=== PATIENT | female | born 1995 ===

== ENCOUNTER 2019-01-30 16:13 | Inpatient (IN) | payer MEDICAID, OTHER ==
--- NOTE | 2019-01-30 18:04 | C.PDOC ---
History Of Present Illness RECUR CP X SEV DAYS. +CHRONIC SOB BUT WORSE THAN USUAL SINCE CP. NO FEVER, COUGH. PMHx of extensive cardiac surgery due to ventricular septle defect at . [facility] "WATER IN MY LUNGS" Patient is on home oxygen at 4 liters BUT HAS NOT USED IN 2 WKS. HO DVT in April 2018 and a PE in December 2017. COMPLIANT W MEDS, TOOK TODAY ON ELIQUIS EXAM NONTOXIC LUNGS CTA B/L NO W/R/R CV RRR EXT REMAINDER NEG <Lori York - Last Filed: 01/30/19 18:53> History Per: Patient History/Exam Limitations: no limitations Onset/Duration Of Symptoms: Days Current Symptoms Are (Timing): Still Present Severity: Moderate <Lori York - Last Filed: 01/30/19 18:53> <Kylie Whitfield - Last Filed: 01/30/19 23:02> Time Seen by Provider: 01/30/19 17:50 Chief Complaint (Nursing): Shortness Of Breath Past Medical History Reviewed: Historical Data, Nursing Documentation, Vital Signs Vital Signs: Last Vital Signs Temp 99.2 F 01/30/19 17:42 Pulse 104 H 01/30/19 17:42 Resp 20 01/30/19 17:42 BP 106/62 01/30/19 17:42 Pulse Ox 87 L 01/30/19 17:42 - Medical History PMH: COPD, Pneumonia, Pulmonary Embolism Other Surgeries: Hx of surgeries Family History: States: No Known Family Hx - Social History Hx Tobacco Use: No (quit 2 months ago) Hx Alcohol Use: Yes Hx Substance Use: No - Immunization History Hx Tetanus Toxoid Vaccination: No Hx Influenza Vaccination: No Hx Pneumococcal Vaccination: No <Lori York - Last Filed: 01/30/19 18:53> Vital Signs: Last Vital Signs Temp 99.2 F 01/30/19 17:42 Pulse 88 01/30/19 21:28 Resp 18 01/30/19 21:28 BP 130/60 01/30/19 21:28 Pulse Ox 92 L 01/30/19 21:28 <Kylie Whitfield - Last Filed: 01/30/19 23:02> Review Of Systems Except As Marked, All Systems Reviewed And Found Negative. Constitutional: Negative for: Fever, Chills Cardiovascular: Positive for: Chest Pain Respiratory: Positive for: Shortness of Breath. Negative for: Cough Gastrointestinal: Negative for: Nausea, Vomiting, Abdominal Pain <Lori York Last Filed: 01/30/19 18:53> Physical Exam - Physical Exam Appears: Non-toxic Skin: Normal Color, Warm, Dry Head: Atraumatic, Normacephalic Eye(s): bilateral: Normal Inspection Neck: Supple Chest: Symmetrical Cardiovascular: Rhythm Regular (RRR) Respiratory: Normal Breath Sounds, No Rales, No Rhonchi, No Wheezing Extremity: Normal ROM Neurological/Psych: Oriented x3, Normal Speech <[facility] Last Filed: 01/30/19 18:53> ED Course And Treatment ECG: Interpreted By Ne ECG Rhythm: Sinus Rhythm ECG Interpretation: Normal Rate From EC O2 Sat by Pulse Oximetry: 87 (RA) Pulse Ox Interpretation: Other (Low) - Radiology CXR: Interpreted by Ne CXR Interpretation: Yes: No Acute Disease <[facility] Last Filed: 01/30/19 18:53> - Laboratory Results Result Diagrams: 01/30/19 19:36 01/30/19 19:36 Lab Results: PT 14.1 SECONDS (9.7-12.2) H 01/30/19 20:07 INR 1.3 01/30/19 20:07 APTT 42 SECONDS (21-34) H 01/30/19 20:07 Troponin I < 0.0120 ng/mL (0.00-0.120) 01/30/19 19:36 NT-Pro-B Natriuret Pep 111 pg/mL (0-450) 01/30/19 19:36 Total Bilirubin 0.9 mg/dL (0.2-1.3) 01/30/19 19:36 AST 96 U/L (14-36) H D 01/30/19 19:36 ALT 42 U/L (9-52) 01/30/19 19:36 Alkaline Phosphatase 117 U/L (38-126) 01/30/19 19:36 Total Protein 9.3 g/dL (6.3-8.3) H 01/30/19 19:36 Albumin 4.8 g/dL (3.5-5.0) 01/30/19 19:36 Globulin 4.5 gm/dL (2.2-3.9) H 01/30/19 19:36 Albumin/Globulin Ratio 1.1 (1.0-2.1) 01/30/19 19:36 Progress Note: spoke with dr amaya -icu - will come and see the pt in the ed. pt is hemodynamically stable. no cp , palpiations and sat 92-94 on 2 l nc <JohanamadieVeenaarslan - Last Filed: 01/30/19 23:02> Progress - Data Reviewed Data Reviewed: Lab, Diagnostic imaging, EKG, Old records <JaylenLori - Last Filed: 01/30/19 18:53> Critical Care Time - Critical Care Note Total Time (in mins): 30 Documented critical care: time excludes all time spent performing seperately billable procedures. <Kylie Whitfield - Last Filed: 01/30/19 23:02> Medical Decision Making Medical Decision Making: Plan: --Labs --CXR --CT-Chest <JaylenLori Last Filed: 01/30/19 18:53> Disposition - Disposition Disposition Time: 19:00 <JaylenLori Last Filed: 01/30/19 18:53> Discussed With : Ramón Henrandez Comment: accepted the pt on his service and took over the care at 11PM Doctor Will See Patient In The: Hospital Counseled Patient/Family Regarding: Studies Performed, Diagnosis - POA Present On Arrival: None <RoseannKylie - Last Filed: 01/30/19 23:02> - Disposition Disposition: HOSPITALIZED Condition: GUARDED Forms: [employer] ([place]) - Clinical Impression Clinical Impression: Chest pain, Hypoxia, Saddle embolus, Pulmonary emboli - Scribe Statement The provider has reviewed the documentation as recorded by the Scribe Daniel Somers Provider Attestation: All medical record entries made by the Scribe were at my direction and personally dictated by me. I have reviewed the chart and agree that the record accurately reflects my personal performance of the history, physical exam, medical decision making, and the department course for this patient. I have also personally directed, reviewed, and agree with the discharge instructions and disposition. <JaylenLori - Last Filed: 01/30/19 18:53> Physician Patient Turnover Patient Signed Over To: Kylie Whitfield Handoff Comments: FU LABS, CT, DISPO <Lori York - Last Filed: 01/30/19 18:53> Decision To Admit <Lori York - Last Filed: 01/30/19 18:53> - Pt Status Changed To: Hospital Disposition Of: Inpatient - Admit Certification Admit to Inpatient:: After my assessment, the patient will require hospitalization for at least two midnights. This is because of the severity of symptoms shown, intensity of services needed, and/or the medical risk in this patient being treated as an outpatient. - InPatient: Physician Admission Certification: I certify that this patient requires 2 or more midnights of care for the following reason:: After my assessment, the patient will require hospitalization for at least two midnights. This is because of the severity of symptoms shown, intensity of services needed, and/or the medical risk in this patient being treated as an outpatient. - . Bed Request Type: ICU Admitting Physician: Ramón Hernandez <Kylie Whitfield - Last Filed: 01/30/19 23:02> - . Patient Diagnosis: Chest pain, Hypoxia, Saddle embolus, Pulmonary emboli
--- NOTE | 2019-01-30 18:28 | RAD ---
Date of service: 01/30/2019 PROCEDURE: CHEST RADIOGRAPH, 1 VIEW HISTORY: chest pain COMPARISON: 10/25/2015. FINDINGS: LUNGS: Clear. PLEURA: No pneumothorax or pleural fluid seen. CARDIOVASCULAR: No aortic atherosclerotic calcification present. No radiographic findings to suggest acute or significant cardiovascular disease. OSSEOUS STRUCTURES: No significant abnormalities. VISUALIZED UPPER ABDOMEN: Normal. OTHER FINDINGS: None. IMPRESSION: No active disease.No significant interval change compared to the prior examination(s). Concordant results with the preliminary interpretation rendered by the emergency department physician procedure.
[2019-01-30 19:44] LABS: BASO % 0.5 % (0.0-2.0); EOS # 0.1 K/uL (0.0-0.7); EOS % 1.5 % (0.0-4.0); HEMOGLOBIN 14.8 g/dL (11.0-16.0); LYMPH # 1.7 K/uL (1.0-4.3); LYMPH % 20.6 % (20.0-40.0); MEAN CORPUSCULAR HGB CONC 31.7 g/dL (33.0-37.0); MEAN PLATELET VOLUME 8.2 fL (7.2-11.7); MONO # 0.8 K/uL (0.0-0.8); MONO % 9.7 % (0.0-10.0); NEUT # 5.5 K/uL (1.8-7.0); NEUT % 67.7 % (50.0-75.0); RBC 6.44 Mil/uL (3.80-5.20); RED CELL DISTRIBUTION WIDTH 19.9 % (11.5-14.5); WHITE BLOOD COUNT 8.2 K/uL (4.8-10.8)
[2019-01-30 19:48] LABS: MEAN CELL VOLUME 72.7 fL (81.0-99.0)
[2019-01-30 20:03] LABS: BLOOD UREA NITROGEN 16 mg/dL (7-17); CALCIUM 9.4 mg/dl (8.6-10.4); GFR NON-AFRICAN AMERICAN > 60
[2019-01-30 20:13] LABS: B-TYPE NATRIURETIC PEPTIDE 111 pg/mL (0-450)
[2019-01-30 20:14] LABS: ALB/GLOB RATIO 1.1 (1.0-2.1); ALBUMIN 4.8 g/dL (3.5-5.0); ALT/SGPT 42 U/L (9-52); AST/SGOT 96 U/L (14-36)
[2019-01-30 20:22] LABS: INR 1.3; PROTHROMBIN TIME 14.1 SECONDS (9.7-12.2)
[2019-01-30] MEDS ORDERED: Iodixanol 320 MG/ML 100 ML BOTTLE IV ONE (20:58)
--- NOTE | 2019-01-31 00:14 | CP.CCUPN ---
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 Patient primary human resources hr generalist at [place], and the patient called left message for him to call us back Patient has been on home oxygen since last year 3 L via nasal cannula and her baseline saturation usually 90%. She presented to the emergency room with on and off shortness of breath pleuritic type mid sternal chest pain and dizziness that has been going on for the past 1-2 weeks, symptom usually worse with walking and activities and relieved by rest, Of note she will call and make an appointment with her primary doctor for Wednesday but she could not wait and presented to the emergency room last night In the emergency room she underwent stat CT angiogram of the chest revealed central and segmental pulmonary embolism bilaterally with sudden saddle embolus present compatible with extensive PE, Upon my exam the patient is alert awake oriented x3, she was hemodynamically stable and saturation in high 90s on 3 L nasal cannula, denies chest pain, shortness of breath, cough, sputum production, fever/chills, hemoptysis, dizziness, loss of consciousness or palpitation. Oxygen increased to 4 L nasal cannula and her saturation picked up to 90-92% Patient is started on heparin drip after she received 5000 units bolus Patient admitted to the intensive care unit for close hemodynamic and respiratory monitoring and the plan is to discuss with interventional radiology for possible catheter directed thrombolytics Echocardiogram and bilateral lower extremity venous Doppler ordered CCU Objective - Vital Signs / Intake & Output Vital Signs (Last 4 hours): Vital Signs Temp Pulse Resp BP Pulse Ox 01/30/19 23:29 98.8 F 96 H 16 117/75 90 L 01/30/19 21:28 88 18 130/60 92 L 01/30/19 21:05 126/73 Intake and Output (Last 8hrs): Intake & Output 01/30/19 01/30/19 01/31/19 14:59 22:59 06:59 Weight 168 lb - Physical Exam Physical Exam Limitations: Negative for: Altered Mental Status, Clinical Condition Head: Positive for: Atraumatic, Normocephalic Pupils: Positive for: PERRL Extroacular Muscles: Positive for: EOMI Conjunctiva: Positive for: Normal. Negative for: Injected, Icteric Ears: Positive for: Normal Mouth: Positive for: Moist Mucous Membranes Pharnyx: Positive for: Normal. Negative for: ERYTHEMA, EXUDATE Nose (Internal): Positive for: Normal Inspection Neck: Positive for: Normal Range of Motion, Trachea Midline. Negative for: Meningeal Signs, MIDLINE TENDERNESS, Paraspinal Tenderness, JVD, Lymphadenopathy, Bruit, Other Respiratory/Chest: Positive for: Clear to Auscultation, Good Air Exchange. Negative for: Respiratory Distress, Accessory Muscle Use, Wheezes, Decreased Breath Sounds, Rales, Rhonchi, Tachypneic Cardiovascular: Positive for: Regular Rate and Rhythm, Normal S1, S2, Peripheal Pulses Present. Negative for: Murmurs, Irregular Rhythm, Tachycardic, Bradycardic, Rub Abdomen: Positive for: Normal Bowel Sounds. Negative for: Tenderness, Distention, Peritoneal Signs Neurological: Positive for: GCS=15, CN II-XII Intact, Motor Func Grossly Intact. Negative for: Speech Normal (MUFFLED (BASELINE)) Psychiatric: Positive for: Alert, Oriented x 3 - Patient Studies Lab Studies: Lab Studies 01/30/19 01/30/19 01/30/19 Range/Units 20:07 19:36 19:36 WBC 8.2 D (4.8-10.8) K/uL RBC 6.44 H (3.80-5.20) Mil/uL Hgb 14.8 D (11.0-16.0) g/dL Hct 46.8 (34.0-47.0) % MCV 72.7 L D (81.0-99.0) fL MCH 23.0 L (27.0-31.0) pg MCHC 31.7 L (33.0-37.0) g/dL RDW 19.9 H (11.5-14.5) % Plt Count 217 D (130-400) K/uL MPV 8.2 (7.2-11.7) fL Neut % (Auto) 67.7 (50.0-75.0) % Lymph % (Auto) 20.6 (20.0-40.0) % Hendry % (Auto) 9.7 (0.0-10.0) % Eos % (Auto) 1.5 (0.0-4.0) % Baso % (Auto) 0.5 (0.0-2.0) % Neut # (Auto) 5.5 (1.8-7.0) K/uL Lymph # (Auto) 1.7 (1.0-4.3) K/uL Hendry # (Auto) 0.8 (0.0-0.8) K/uL Eos # (Auto) 0.1 (0.0-0.7) K/uL Baso # (Auto) 0.0 (0.0-0.2) K/uL PT 14.1 H (9.7-12.2) SECONDS INR 1.3 APTT 42 H (21-34) SECONDS Sodium 136 (132-148) mmol/L Potassium 4.0 (3.6-5.2) mmol/L Chloride 96 L (98-107) mmol/L Carbon Dioxide 26 (22-30) mmol/L Anion Gap 17 (10-20) BUN 16 (7-17) mg/dL Creatinine 0.5 L (0.7-1.2) mg/dL Est GFR ( Amer) > 60 Est GFR (Non-Af Amer) > 60 Random Glucose 93 (65-105) mg/dL Calcium 9.4 (8.6-10.4) mg/dl Total Bilirubin 0.9 (0.2-1.3) mg/dL AST 96 H D (14-36) U/L ALT 42 (9-52) U/L Alkaline Phosphatase 117 (38-126) U/L Troponin I < 0.0120 (0.00-0.120) ng/mL NT-Pro-B Natriuret Pep 111 (0-450) pg/mL Total Protein 9.3 H (6.3-8.3) g/dL Albumin 4.8 (3.5-5.0) g/dL Globulin 4.5 H (2.2-3.9) gm/dL Albumin/Globulin Ratio 1.1 (1.0-2.1) Laboratory Results - last 24 hr 01/30/19 01/30/19 01/30/19 19:36 19:36 20:07 WBC 8.2 D RBC 6.44 H Hgb 14.8 D Hct 46.8 MCV 72.7 L D MCH 23.0 L MCHC 31.7 L RDW 19.9 H Plt Count 217 D MPV 8.2 Neut % (Auto) 67.7 Lymph % (Auto) 20.6 Hendry % (Auto) 9.7 Eos % (Auto) 1.5 Baso % (Auto) 0.5 Neut # (Auto) 5.5 Lymph # (Auto) 1.7 Hendry # (Auto) 0.8 Eos # (Auto) 0.1 Baso # (Auto) 0.0 PT 14.1 H INR 1.3 APTT 42 H Sodium 136 Potassium 4.0 Chloride 96 L Carbon Dioxide 26 Anion Gap 17 BUN 16 Creatinine 0.5 L Est GFR ( Amer) > 60 Est GFR (Non-Af Amer) > 60 Random Glucose 93 Calcium 9.4 Total Bilirubin 0.9 AST 96 H D ALT 42 Alkaline Phosphatase 117 Troponin I < 0.0120 NT-Pro-B Natriuret Pep 111 Total Protein 9.3 H Albumin 4.8 Globulin 4.5 H Albumin/Globulin Ratio 1.1 Radiology Impressions: Radiology Impressions Chest X-Ray 01/30/19 18:04 IMPRESSION: No active disease.No significant interval change compared to the prior examination(s). Concordant results with the preliminary interpretation rendered by the emergency department physician procedure. EKG/Cardiology Studies: Cardiology / EKG Studies 01/30/19 18:04 ELECTROCARDIOGRAM Stat Comment: Mode Of Transportation: BED Reason For Exam: chest pain Critical Care Progress Note - Extremities/Vascular Does the Patient have a Central Venous Catheter?: No Does the Patient need a Central Venous Catheter?: No Does the Patient have a Duron Catheter?: No Does the Patient need a Duron Catheter?: No Assessment/Plan (1) Chest pain Current Visit: Yes Status: Acute (2) Hypoxia Current Visit: Yes Status: Acute (3) Pulmonary emboli Current Visit: Yes Status: Acute (4) Saddle embolus Current Visit: Yes Status: Acute (5) Abdominal pain Current Visit: No Status: Acute (6) Atypical chest pain Current Visit: No Status: Acute (7) Dizziness Current Visit: No Status: Acute (8) Pulmonary nodule Current Visit: No Status: Acute <Melody Marieudhry S - Last Filed: 01/31/19 18:07> CCU Objective - Vital Signs / Intake & Output Vital Signs (Last 4 hours): Vital Signs Temp Pulse Resp BP Pulse Ox 01/31/19 17:41 88 14 104/47 L 87 L 01/31/19 16:41 89 17 91/54 L 90 L 01/31/19 16:00 97.4 F L 01/31/19 15:41 86 16 103/53 L 94 L 01/31/19 15:00 84 18 92 L 01/31/19 14:41 87 29 H 104/58 L 90 L Intake and Output (Last 8hrs): Intake & Output 01/31/19 01/31/19 01/31/19 06:59 14:59 22:59 Intake Total 273.23 894.6 22 Output Total 250 400 Balance 23.23 494.6 22 Weight 162 lb 3.2 oz Intake: IV 93 Intake, IV Amount 73.23 81.6 22 Right Upper arm 73.23 81.6 22 Oral 200 720 Output: Urine 250 400 Urine, Voided 250 400 Other: # Voids Urine, Voided 1 - Medications Active Medications: Active Medications Generic Name Dose Route Start Last Admin Trade Name Freq PRN Reason Stop Dose Admin Heparin Sodium/Sodium Chloride 25,000 units in 250 mls @ 11.036 mls/hr 01/31/19 10:00 01/31/19 10:00 Heparin 24461 Units/250ml 1/2 Normal Saline IV 15 units/kg/hr .[id number] PRN 11.036 mls/hr PROTOCOL Administration Protocol 15 UNITS/KG/HR Pantoprazole Sodium 40 mg 01/31/19 13:40 01/31/19 14:37 Protonix Ec Tab PO 40 mg DAILY HOA Administration Pneumococcal Polyvalent Vaccine 0.5 ml 02/02/19 10:00 Pneumovax 23 Vaccine IM 02/02/19 10:01 .ONCE ONE - Patient Studies Lab Studies: Lab Studies 01/31/19 01/31/19 01/31/19 Range/Units 16:24 16:24 13:01 WBC (4.8-10.8) K/uL RBC (3.80-5.20) Mil/uL Hgb (11.0-16.0) g/dL Hct (34.0-47.0) % MCV (81.0-99.0) fL MCH (27.0-31.0) pg MCHC (33.0-37.0) g/dL RDW (11.5-14.5) % Plt Count (130-400) K/uL MPV (7.2-11.7) fL Neut % (Auto) (50.0-75.0) % Lymph % (Auto) (20.0-40.0) % Hendry % (Auto) (0.0-10.0) % Eos % (Auto) (0.0-4.0) % Baso % (Auto) (0.0-2.0) % Neut # (Auto) (1.8-7.0) K/uL Lymph # (Auto) (1.0-4.3) K/uL Hendry # (Auto) (0.0-0.8) K/uL Eos # (Auto) (0.0-0.7) K/uL Baso # (Auto) (0.0-0.2) K/uL PT (9.7-12.2) SECONDS INR APTT 155 H* D (21-34) SECONDS Sodium (132-148) mmol/L Potassium (3.6-5.2) mmol/L Chloride (98-107) mmol/L Carbon Dioxide (22-30) mmol/L Anion Gap (10-20) BUN (7-17) mg/dL Creatinine (0.7-1.2) mg/dL Est GFR ( Amer) Est GFR (Non-Af Amer) Random Glucose (65-105) mg/dL Calcium (8.6-10.4) mg/dl Phosphorus (2.5-4.5) mg/dL Magnesium (1.6-2.3) mg/dL Total Bilirubin (0.2-1.3) mg/dL AST (14-36) U/L ALT (9-52) U/L Alkaline Phosphatase (38-126) U/L Total Creatine Kinase 55 (30-135) U/L CK-MB (Mass) 0.25 (0.0-3.38) ng/mL Troponin I < 0.0120 (0.00-0.120) ng/mL NT-Pro-B Natriuret Pep (0-450) pg/mL Total Protein (6.3-8.3) g/dL Albumin (3.5-5.0) g/dL Globulin (2.2-3.9) gm/dL Albumin/Globulin Ratio (1.0-2.1) Urine HCG, Qual Negative (NEGATIVE) 01/31/19 01/31/19 01/31/19 Range/Units 08:13 08:13 08:13 WBC 6.9 (4.8-10.8) K/uL RBC 5.92 H (3.80-5.20) Mil/uL Hgb 13.5 (11.0-16.0) g/dL Hct 42.9 (34.0-47.0) % MCV 72.6 L (81.0-99.0) fL MCH 22.8 L (27.0-31.0) pg MCHC 31.4 L (33.0-37.0) g/dL RDW 19.8 H (11.5-14.5) % Plt Count 210 (130-400) K/uL MPV 7.9 (7.2-11.7) fL Neut % (Auto) 58.2 (50.0-75.0) % Lymph % (Auto) 27.0 (20.0-40.0) % Hendry % (Auto) 11.1 H (0.0-10.0) % Eos % (Auto) 2.8 (0.0-4.0) % Baso % (Auto) 0.9 (0.0-2.0) % Neut # (Auto) 4.0 (1.8-7.0) K/uL Lymph # (Auto) 1.9 (1.0-4.3) K/uL Hendry # (Auto) 0.8 (0.0-0.8) K/uL Eos # (Auto) 0.2 (0.0-0.7) K/uL Baso # (Auto) 0.1 (0.0-0.2) K/uL PT (9.7-12.2) SECONDS INR APTT > 400 H* D (21-34) SECONDS Sodium 136 (132-148) mmol/L Potassium 3.4 L (3.6-5.2) mmol/L Chloride 97 L (98-107) mmol/L Carbon Dioxide 30 (22-30) mmol/L Anion Gap 13 (10-20) BUN 17 (7-17) mg/dL Creatinine 0.6 L (0.7-1.2) mg/dL Est GFR ( Amer) > 60 Est GFR (Non-Af Amer) > 60 Random Glucose 111 H (65-105) mg/dL Calcium 8.9 (8.6-10.4) mg/dl Phosphorus 5.4 H (2.5-4.5) mg/dL Magnesium 2.0 (1.6-2.3) mg/dL Total Bilirubin 0.8 (0.2-1.3) mg/dL AST 64 H D (14-36) U/L ALT 65 H D (9-52) U/L Alkaline Phosphatase 95 (38-126) U/L Total Creatine Kinase 54 (30-135) U/L CK-MB (Mass) < 0.22 (0.0-3.38) ng/mL Troponin I < 0.0120 (0.00-0.120) ng/mL NT-Pro-B Natriuret Pep (0-450) pg/mL Total Protein 7.7 (6.3-8.3) g/dL Albumin 4.2 (3.5-5.0) g/dL Globulin 3.5 (2.2-3.9) gm/dL Albumin/Globulin Ratio 1.2 (1.0-2.1) Urine HCG, Qual (NEGATIVE) 01/30/19 01/30/19 01/30/19 Range/Units 20:07 19:36 19:36 WBC 8.2 D (4.8-10.8) K/uL RBC 6.44 H (3.80-5.20) Mil/uL Hgb 14.8 D (11.0-16.0) g/dL Hct 46.8 (34.0-47.0) % MCV 72.7 L D (81.0-99.0) fL MCH 23.0 L (27.0-31.0) pg MCHC 31.7 L (33.0-37.0) g/dL RDW 19.9 H (11.5-14.5) % Plt Count 217 D (130-400) K/uL MPV 8.2 (7.2-11.7) fL Neut % (Auto) 67.7 (50.0-75.0) % Lymph % (Auto) 20.6 (20.0-40.0) % Hendry % (Auto) 9.7 (0.0-10.0) % Eos % (Auto) 1.5 (0.0-4.0) % Baso % (Auto) 0.5 (0.0-2.0) % Neut # (Auto) 5.5 (1.8-7.0) K/uL Lymph # (Auto) 1.7 (1.0-4.3) K/uL Hendry # (Auto) 0.8 (0.0-0.8) K/uL Eos # (Auto) 0.1 (0.0-0.7) K/uL Baso # (Auto) 0.0 (0.0-0.2) K/uL PT 14.1 H (9.7-12.2) SECONDS INR 1.3 APTT 42 H (21-34) SECONDS Sodium 136 (132-148) mmol/L Potassium 4.0 (3.6-5.2) mmol/L Chloride 96 L (98-107) mmol/L Carbon Dioxide 26 (22-30) mmol/L Anion Gap 17 (10-20) BUN 16 (7-17) mg/dL Creatinine 0.5 L (0.7-1.2) mg/dL Est GFR ( Amer) > 60 Est GFR (Non-Af Amer) > 60 Random Glucose 93 (65-105) mg/dL Calcium 9.4 (8.6-10.4) mg/dl Phosphorus (2.5-4.5) mg/dL Magnesium (1.6-2.3) mg/dL Total Bilirubin 0.9 (0.2-1.3) mg/dL AST 96 H D (14-36) U/L ALT 42 (9-52) U/L Alkaline Phosphatase 117 (38-126) U/L Total Creatine Kinase (30-135) U/L CK-MB (Mass) (0.0-3.38) ng/mL Troponin I < 0.0120 (0.00-0.120) ng/mL NT-Pro-B Natriuret Pep 111 (0-450) pg/mL Total Protein 9.3 H (6.3-8.3) g/dL Albumin 4.8 (3.5-5.0) g/dL Globulin 4.5 H (2.2-3.9) gm/dL Albumin/Globulin Ratio 1.1 (1.0-2.1) Urine HCG, Qual (NEGATIVE) Laboratory Results - last 24 hr 01/30/19 01/30/19 01/30/19 19:36 19:36 20:07 WBC 8.2 D RBC 6.44 H Hgb 14.8 D Hct 46.8 MCV 72.7 L D MCH 23.0 L MCHC 31.7 L RDW 19.9 H Plt Count 217 D MPV 8.2 Neut % (Auto) 67.7 Lymph % (Auto) 20.6 Hendry % (Auto) 9.7 Eos % (Auto) 1.5 Baso % (Auto) 0.5 Neut # (Auto) 5.5 Lymph # (Auto) 1.7 Hendry # (Auto) 0.8 Eos # (Auto) 0.1 Baso # (Auto) 0.0 PT 14.1 H INR 1.3 APTT 42 H Sodium 136 Potassium 4.0 Chloride 96 L Carbon Dioxide 26 Anion Gap 17 BUN 16 Creatinine 0.5 L Est GFR ( Amer) > 60 Est GFR (Non-Af Amer) > 60 Random Glucose 93 Calcium 9.4 Phosphorus Magnesium Total Bilirubin 0.9 AST 96 H D ALT 42 Alkaline Phosphatase 117 Total Creatine Kinase CK-MB (Mass) Troponin I < 0.0120 NT-Pro-B Natriuret Pep 111 Total Protein 9.3 H Albumin 4.8 Globulin 4.5 H Albumin/Globulin Ratio 1.1 Urine HCG, Qual 01/31/19 01/31/19 01/31/19 08:13 08:13 08:13 WBC 6.9 RBC 5.92 H Hgb 13.5 Hct 42.9 MCV 72.6 L MCH 22.8 L MCHC 31.4 L RDW 19.8 H Plt Count 210 MPV 7.9 Neut % (Auto) 58.2 Lymph % (Auto) 27.0 Hendry % (Auto) 11.1 H Eos % (Auto) 2.8 Baso % (Auto) 0.9 Neut # (Auto) 4.0 Lymph # (Auto) 1.9 Hendry # (Auto) 0.8 Eos # (Auto) 0.2 Baso # (Auto) 0.1 PT INR APTT > 400 H* D Sodium 136 Potassium 3.4 L Chloride 97 L Carbon Dioxide 30 Anion Gap 13 BUN 17 Creatinine 0.6 L Est GFR ( Amer) > 60 Est GFR (Non-Af Amer) > 60 Random Glucose 111 H Calcium 8.9 Phosphorus 5.4 H Magnesium 2.0 Total Bilirubin 0.8 AST 64 H D ALT 65 H D Alkaline Phosphatase 95 Total Creatine Kinase 54 CK-MB (Mass) < 0.22 Troponin I < 0.0120 NT-Pro-B Natriuret Pep Total Protein 7.7 Albumin 4.2 Globulin 3.5 Albumin/Globulin Ratio 1.2 Urine HCG, Qual 01/31/19 01/31/19 01/31/19 13:01 16:24 16:24 WBC RBC Hgb Hct MCV MCH MCHC RDW Plt Count MPV Neut % (Auto) Lymph % (Auto) Hendry % (Auto) Eos % (Auto) Baso % (Auto) Neut # (Auto) Lymph # (Auto) Hendry # (Auto) Eos # (Auto) Baso # (Auto) PT INR APTT 155 H* D Sodium Potassium Chloride Carbon Dioxide Anion Gap BUN Creatinine Est GFR ( Amer) Est GFR (Non-Af Amer) Random Glucose Calcium Phosphorus Magnesium Total Bilirubin AST ALT Alkaline Phosphatase Total Creatine Kinase 55 CK-MB (Mass) 0.25 Troponin I < 0.0120 NT-Pro-B Natriuret Pep Total Protein Albumin Globulin Albumin/Globulin Ratio Urine HCG, Qual Negative Radiology Impressions: Radiology Impressions Chest CT 01/30/19 18:04 IMPRESSION: 1. 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 2. Significant filling defects within the main pulmonary artery and segmental right and left pulmonary arteries consistent with thrombus. This is not significantly changed from study of 07/07/2018 and represent acute on chronic pulmonary embolism. Chest X-Ray 01/30/19 18:04 IMPRESSION: No active disease.No significant interval change compared to the prior examination(s). Concordant results with the preliminary interpretation rendered by the emergency department physician procedure. 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 CT angiogram done in the emergency not much change from previous CAT scan of December 2017 On my examination patient sitting comfortably in no distress and denies any chest pain, shortness of breath or dizziness. Saturation 90-91% on 2 L nasal cannula, with heart rate in the mid 80s and normal blood pressure Echocardiogram done and reviewed by human resources hr generalist On heparin drip Normal troponins and proBNP Plan for transfer to [facility] Case discussed with Dr. Pedraza who accepted the patient
[2019-01-31] MEDS ORDERED: Heparin25000 units/250ml 1/2NS 25,000 UNITS/250 ML BAG IV PRN ×2 (00:16→10:00)
[2019-01-31 00:59] VITALS: BMI 35.0
[2019-01-31 08:18] LABS: BASO # 0.1 K/uL (0.0-0.2); BASO % 0.9 % (0.0-2.0); EOS # 0.2 K/uL (0.0-0.7); EOS % 2.8 % (0.0-4.0); HEMOGLOBIN 13.5 g/dL (11.0-16.0); LYMPH # 1.9 K/uL (1.0-4.3); MEAN CELL VOLUME 72.6 fL (81.0-99.0); MEAN CORPUSCULAR HEMOGLOBIN 22.8 pg (27.0-31.0); MEAN CORPUSCULAR HGB CONC 31.4 g/dL (33.0-37.0); MEAN PLATELET VOLUME 7.9 fL (7.2-11.7); MONO # 0.8 K/uL (0.0-0.8); MONO % 11.1 % (0.0-10.0); NEUT % 58.2 % (50.0-75.0); NRBC % 0.2 % (0.0-2.0); RBC 5.92 Mil/uL (3.80-5.20); RED CELL DISTRIBUTION WIDTH 19.8 % (11.5-14.5); WHITE BLOOD COUNT 6.9 K/uL (4.8-10.8)
[2019-01-31 08:37] LABS: ALB/GLOB RATIO 1.2 (1.0-2.1); ALBUMIN 4.2 g/dL (3.5-5.0); ALT/SGPT 65 U/L (9-52); AST/SGOT 64 U/L (14-36); BLOOD UREA NITROGEN 17 mg/dL (7-17); CALCIUM 8.9 mg/dl (8.6-10.4); GFR NON-AFRICAN AMERICAN > 60
[2019-01-31 08:48] LABS: CK-MB < 0.22 ng/mL (0.0-3.38)
[2019-01-31] MEDS ORDERED: Potassium Chloride 20 mEq ER Tab PO STA (08:53)
--- NOTE | 2019-01-31 09:59 | CARD ---
APPROVED REPORT Date of service: 01/31/2019 EXAM: Two-dimensional and M-mode echocardiogram with Doppler and color Doppler. Other Information Quality : TDSRhythm : INDICATION Dizziness and Vertigo Dyspnea Pulmonary Embolism Chest Pain CONGENITAL HEART DISEASE UNKNOWN 2D DIMENSIONS IVSd1.1 (0.7-1.1cm)LVDd4.5 (3.9-5.9cm) PWd0.9 (0.7-1.1cm)LVDs3.1 (2.5-4.0cm) FS (%) 29.7 %LVEF (%)56.9 (>50%) IVC0.00 cm M-Mode DIMENSIONS Left Atrium (MM)3.59 (2.5-4.0cm)IVSd1.25 (0.7-1.1cm) Aortic Root2.63 (2.2-3.7cm)LVDd4.37 (4.0-5.6cm) Aortic Cusp Exc.1.80 (1.5-2.0cm)PWd1.06 (0.7-1.1cm) FS (%) 15 %LVDs3.71 (2.0-3.8cm) LVEF (%)33 (>50%) Mitral Valve MV E Opjbqrpr75.3cm/sMV A Clypczsj35.2cm/sE/A ratio1.0 TDI Lateral E' Peak V5.25cm/sMedial E' Peak V5.06cm/sE/Lateral E'10.7 E/Medial E'11.1 <Conclusion> tds. very poor window. lv size appears normal. overall lvef of 50-55%. mitral appears normal. nomral size aortic root,ivc & la. no pericardial effusion seen. can not comment on anyother strucutres or function. clinical correlation is adv.
--- NOTE | 2019-01-31 10:06 | CT ---
Date of service: 01/30/2019 PROCEDURE: CT Chest with contrast (Pulmonary Angiogram) HISTORY: SOB r/o PE COMPARISON: None available. TECHNIQUE: Axial computed tomography images were obtained of the chest in the pulmonary arterial phase of enhancement. Coronal and sagittal reformatted images were created and reviewed. Intravenous contrast dose: 100 cubic centimeters Visipaque 320 Radiation dose: Total exam DLP = 490.77 mGy-cm. This CT exam was performed using one or more of the following dose reduction techniques: Automated exposure control, adjustment of the mA and/or kV according to patient size, and/or use of iterative reconstruction technique. FINDINGS: PULMONARY ARTERIES: There is evidence of central and segmental pulmonary embolism noted bilaterally with saddle thrombus. The amount of thrombus is not significantly changed from study of 07/07/2018. Systemic pulmonary shunt. AORTA: No acute findings. No thoracic aortic aneurysm. No aortic atherosclerotic calcification or mural plaque present. LUNGS: Unremarkable. No nodule, mass or pulmonary consolidation. PLEURAL SPACES: Unremarkable. No effusion or pneumothorax. 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 LV is unremarkable. LYMPH NODES: No lymphadenopathy. BONES, CHEST WALL: Unremarkable. No fracture or destructive lesion OTHER FINDINGS: Unremarkable. IMPRESSION: 1. 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 2. Significant filling defects within the main pulmonary artery and segmental right and left pulmonary arteries consistent with thrombus. This is not significantly changed from study of 07/07/2018 and represent acute on chronic pulmonary embolism.
[2019-01-31] MEDS ORDERED: Pantoprazole 40 mg EC Tab PO SCH (13:40)
[2019-01-31 16:55] LABS: CK-MB 0.25 ng/mL (0.0-3.38)
--- NOTE | 2019-01-31 19:00 | CP.PCM.HP ---
Past Patient History - Past Social History Smoking Status: Former Smoker - CARDIAC Hx Cardiac Disorders: Yes Other/Comment: Ventricular Septal defect at - PULMONARY Hx Respiratory Disorders: Yes Hx Chronic Obstructive Pulmonary Disease (COPD): Yes Hx Pneumonia: Yes Hx Pulmonary Embolism: Yes - NEUROLOGICAL Hx Neurological Disorder: No - HEENT Hx HEENT Problems: Yes Other/Comment: eyeglasses for reading and distance - RENAL Hx Chronic Kidney Disease: No - ENDOCRINE/METABOLIC Hx Endocrine Disorders: No - HEMATOLOGICAL/ONCOLOGICAL Hx Blood Disorders: No - INTEGUMENTARY Hx Dermatological Problems: No - MUSCULOSKELETAL/RHEUMATOLOGICAL Hx Musculoskeletal Disorders: No Hx Falls: No - GASTROINTESTINAL Hx Gastrointestinal Disorders: No - GENITOURINARY/GYNECOLOGICAL Hx Genitourinary Disorders: No - PSYCHIATRIC Hx Substance Use: No - SURGICAL HISTORY Hx Surgeries: Yes Hx Open Heart Surgery: Yes Other/Comment: Tracheostomy- closed - ANESTHESIA Hx Anesthesia: Yes Hx Anesthesia Reactions: No Hx Malignant Hyperthermia: No Has any member of the family had a problem w/ anesthesia?: No Meds Allergies/Adverse Reactions: Allergies Allergy/AdvReac Type Severity Reaction Status Date / Time peanut Allergy ANGIOEDEMA Verified 01/30/19 17:37 Physical Exam - Constitutional Appears: Well - Head Exam Head Exam: ATRAUMATIC, NORMAL INSPECTION, NORMOCEPHALIC - Eye Exam Eye Exam: EOMI, Normal appearance, PERRL Pupil Exam: NORMAL ACCOMODATION, PERRL - ENT Exam ENT Exam: Mucous Membranes Moist, Normal Exam - Neck Exam Neck exam: Positive for: Normal Inspection - Respiratory Exam Respiratory Exam: Decreased Breath Sounds - Cardiovascular Exam Cardiovascular Exam: REGULAR RHYTHM, +S1, +S2 - GI/Abdominal Exam GI & Abdominal Exam: Diminished Bowel Sounds, Soft - Rectal Exam Rectal Exam: Deferred - Neurological Exam Neurological exam: Oriented x3 Results - Vital Signs Recent Vital Signs: Last Vital Signs Temp 97.4 F L 01/31/19 16:00 Pulse 88 01/31/19 17:41 Resp 14 01/31/19 17:41 BP 104/47 L 01/31/19 17:41 Pulse Ox 87 L 01/31/19 17:41 - Labs Result Diagrams: 01/31/19 08:13 01/31/19 08:13 Labs: Laboratory Results - last 24 hr 01/30/19 01/30/19 01/30/19 19:36 19:36 20:07 WBC 8.2 D RBC 6.44 H Hgb 14.8 D Hct 46.8 MCV 72.7 L D MCH 23.0 L MCHC 31.7 L RDW 19.9 H Plt Count 217 D MPV 8.2 Neut % (Auto) 67.7 Lymph % (Auto) 20.6 [place] % (Auto) 9.7 Eos % (Auto) 1.5 Baso % (Auto) 0.5 Neut # (Auto) 5.5 Lymph # (Auto) 1.7 [place] # (Auto) 0.8 Eos # (Auto) 0.1 Baso # (Auto) 0.0 PT 14.1 H INR 1.3 APTT 42 H Sodium 136 Potassium 4.0 Chloride 96 L Carbon Dioxide 26 Anion Gap 17 BUN 16 Creatinine 0.5 L Est GFR ( Amer) > 60 Est GFR (Non-Af Amer) > 60 Random Glucose 93 Calcium 9.4 Phosphorus Magnesium Total Bilirubin 0.9 AST 96 H D ALT 42 Alkaline Phosphatase 117 Total Creatine Kinase CK-MB (Mass) Troponin I < 0.0120 NT-Pro-B Natriuret Pep 111 Total Protein 9.3 H Albumin 4.8 Globulin 4.5 H Albumin/Globulin Ratio 1.1 Urine HCG, Qual 01/31/19 01/31/19 01/31/19 08:13 08:13 08:13 WBC 6.9 RBC 5.92 H Hgb 13.5 Hct 42.9 MCV 72.6 L MCH 22.8 L MCHC 31.4 L RDW 19.8 H Plt Count 210 MPV 7.9 Neut % (Auto) 58.2 Lymph % (Auto) 27.0 [place] % (Auto) 11.1 H Eos % (Auto) 2.8 Baso % (Auto) 0.9 Neut # (Auto) 4.0 Lymph # (Auto) 1.9 [place] # (Auto) 0.8 Eos # (Auto) 0.2 Baso # (Auto) 0.1 PT INR APTT > 400 H* D Sodium 136 Potassium 3.4 L Chloride 97 L Carbon Dioxide 30 Anion Gap 13 BUN 17 Creatinine 0.6 L Est GFR ( Amer) > 60 Est GFR (Non-Af Amer) > 60 Random Glucose 111 H Calcium 8.9 Phosphorus 5.4 H Magnesium 2.0 Total Bilirubin 0.8 AST 64 H D ALT 65 H D Alkaline Phosphatase 95 Total Creatine Kinase 54 CK-MB (Mass) < 0.22 Troponin I < 0.0120 NT-Pro-B Natriuret Pep Total Protein 7.7 Albumin 4.2 Globulin 3.5 Albumin/Globulin Ratio 1.2 Urine HCG, Qual 01/31/19 01/31/19 01/31/19 13:01 16:24 16:24 WBC RBC Hgb Hct MCV MCH MCHC RDW Plt Count MPV Neut % (Auto) Lymph % (Auto) [place] % (Auto) Eos % (Auto) Baso % (Auto) Neut # (Auto) Lymph # (Auto) [place] # (Auto) Eos # (Auto) Baso # (Auto) PT INR APTT 155 H* D Sodium Potassium Chloride Carbon Dioxide Anion Gap BUN Creatinine Est GFR ( Amer) Est GFR (Non-Af Amer) Random Glucose Calcium Phosphorus Magnesium Total Bilirubin AST ALT Alkaline Phosphatase Total Creatine Kinase 55 CK-MB (Mass) 0.25 Troponin I < 0.0120 NT-Pro-B Natriuret Pep Total Protein Albumin Globulin Albumin/Globulin Ratio Urine HCG, Qual Negative
--- NOTE | 2019-01-31 20:34 | CARD ---
APPROVED REPORT Date of service: 01/30/2019 EKG Measurement Heart [id number] 150P1 [id number] <Conclusion> Normal sinus rhythm Voltage criteria for left ventricular hypertrophy Nonspecific T wave abnormality Prolonged QT Abnormal ECG
[2019-01-31 20:39] VITALS: BP 124/64; PULSE 93; RESP 24; TEMP 97.6; O2SAT 89
[2019-02-01] MEDS ORDERED: Pantoprazole 40 mg EC Tab PO SCH (10:00)
[2019-02-01] MEDS ORDERED: Pantoprazole 40 mg EC Tab PO ONE (12:34)
--- NOTE | 2019-02-01 13:44 | VASCLAB ---
Date of service: 01/31/2019 PROCEDURE: Lower Extremity Venous Duplex Exam. HISTORY: R/O acute DVT PRIORS: None. TECHNIQUE: Bilateral common femoral, femoral, popliteal and posterior tibial, peroneal and great saphenous veins were evaluated. Flow was assessed with color Doppler, compressibility, assessment of phasic flow and augmentation response. Report prepared by TONO Gardner FINDINGS: RIGHT: 1. Common Femoral Vein: 1.1. Compressibility - Fully compressible: Thrombus - None : Flow - Phasic: Augmentation -Normal: Reflux - None. 2. Femoral Vein: 2.1. Compressibility - Fully compressible: Thrombus - None : Flow - Phasic: Augmentation -Normal: Reflux - None. 3. Popliteal Vein: 3.1. Compressibility - Fully compressible: Thrombus - None : Flow - Phasic: Augmentation -Normal: Reflux - None. 4. Posterior Tibial Vein: 4.1. Compressibility - Fully compressible: Thrombus - None: Flow - Phasic: Augmentation -Normal: Reflux - None. 5. Peroneal Vein: 5.1. Compressibility - Fully compressible: Thrombus - None: Flow - Phasic: Augmentation -Normal: Reflux - None. 6. Great Saphenous Vein: (upper) 6.1. Compressibility - Fully compressible: Thrombus - None: Flow - Phasic: Augmentation - Normal: Reflux - None. LEFT: 1. Common Femoral Vein: 1.1. Compressibility - Fully compressible: Thrombus - None: Flow - Phasic: Augmentation -Normal: Reflux - None. 2. Femoral Vein: 2.1. Compressibility - Fully compressible: Thrombus - None: Flow - Phasic: Augmentation -Normal: Reflux - None. 3. Popliteal Vein: 3.1. Compressibility - Fully compressible: Thrombus - None : Flow - Phasic: Augmentation -Normal: Reflux - None. 4. Posterior Tibial Vein: 4.1. Compressibility - Fully compressible: Thrombus - None: Flow - Phasic: Augmentation -Normal: Reflux - None. 5. Peroneal Vein: 5.1. Compressibility - Fully compressible: Thrombus - None: Flow - Phasic: Augmentation -Normal: Reflux - None. 6. Great Saphenous Vein: 6.1. Compressibility - Fully compressible: Thrombus - None: Flow - Phasic: Augmentation - Normal: Reflux - None. OTHER FINDINGS: None significant. IMPRESSION: Right: No evidence of deep or superficial vein thrombosis of the right lower extremity. Normal valve function noted of the right side. Left: No evidence of deep or superficial vein thrombosis of the left lower extremity. Normal valve function noted of the left side.
[2019-02-02] MEDS ORDERED: Pneumococcal 23-Valent Vaccine IM ONE (10:00)
== END 2019-01-31 20:00 | disposition short-term general hospital (02) | DRG 78 ==
LOC: C.ER 16:13 → C.9E 22:56 → C.9I 23:23
PROVIDERS: ADMIT Internal Medicine Nephrology; ATTEND Internal Medicine Nephrology
DX: I26.92 Saddle embolus of pulmonary artery without acute cor pulmonale (principal); J44.9 Chronic obstructive pulmonary disease, unspecified; R09.02 Hypoxemia; I27.20 Pulmonary hypertension, unspecified; Z86.711 Personal history of pulmonary embolism; Z86.718 Personal history of other venous thrombosis and embolism; Z87.01 Personal history of pneumonia (recurrent); Z87.74 Personal history of (corrected) congenital malformations of heart and circulatory system; Z87.891 Personal history of nicotine dependence; Z99.81 Dependence on supplemental oxygen